=== PATIENT | male | born 1935 | race Caucasian/White ===

== ENCOUNTER → 2018-06-10 | Outpatient (CLI) | payer MEDICARE, OTHER ==
[2018-06-10 12:51] LABS: Basophils # (auto) 0.1 uL; Basophils % (auto) 0.5 % (0.0-2.0); Eosinophils # (auto) 0.2 uL; Eosinophils % (auto) 1.5 % (0.0-7.0); Hematocrit 29.3 % (41.0-53.0); Hemoglobin 9.8 g/dL (13.5-17.5); Lymphocytes # (auto) 1.9 uL; Lymphocytes % (auto) 13.5 % (10.0-50.0); Mean Corpuscular Hgb Conc. 33.3 g/dL (32.0-36.0); Mean Corpuscular Volume 99.1 fL (80.0-100.0); Monocytes # (auto) 1.4 uL; Monocytes % (auto) 10.2 % (0.0-12.0); Neutrophils # (auto) 10.3 uL; Neutrophils % (auto) 74.3 % (37.0-80.0); Nucleated Red Blood Cells % 0.2 %; Platelet Count (auto) 224 10^3/uL (140-450); Red Blood Cells 2.95 10^6/uL (4.5-5.90); Red Cell Distribution Width 16.9 % (11.8-14.3); White Blood Cell 13.8 10^3/uL (4.4-10.8)
[2018-06-10 15:22] LABS: Albumin 3.2 g/dL (3.4-5.0); BUN/Creatinine Ratio 40.4; Bilirubin, Total 1.2 mg/dL (0.2-1.0); CRP High Sensitivity 11.5 mg/dL (< 0.3); Calcium 8.7 mg/dL (8.5-10.1); Potassium 4.1 mmol/L (3.5-5.1); Total Protein 6.4 g/dL (6.4-8.2)
== END | disposition home or self-care (01) ==
LOC: LAB 12:22
PROVIDERS: ATTEND Internal Medicine
DX: I10 Essential (primary) hypertension (principal); L40.52 Psoriatic arthritis mutilans
CPT/HCPCS: 36415; 80053; 85025; 86141

== ENCOUNTER → 2018-10-06 | Outpatient (CLI) | payer MEDICARE, OTHER ==
[2018-10-06 14:57] LABS: Basophils # (auto) 0 uL; Basophils % (auto) 0.5 % (0.0-2.0); Eosinophils # (auto) 0.2 uL; Eosinophils % (auto) 1.9 % (0.0-7.0); Hematocrit 30.2 % (41.0-53.0); Hemoglobin 10.1 g/dL (13.5-17.5); Lymphocytes # (auto) 1.7 uL; Lymphocytes % (auto) 19.2 % (10.0-50.0); Mean Corpuscular Hemoglobin 32.3 pg (28.0-32.0); Mean Corpuscular Hgb Conc. 33.4 g/dL (32.0-36.0); Mean Corpuscular Volume 96.7 fL (80.0-100.0); Monocytes # (auto) 0.9 uL; Monocytes % (auto) 10.3 % (0.0-12.0); Neutrophils # (auto) 6.1 uL; Neutrophils % (auto) 68.1 % (37.0-80.0); Nucleated Red Blood Cells % 0.1 %; Platelet Count (auto) 162 10^3/uL (140-450); Red Blood Cells 3.12 10^6/uL (4.5-5.90); Red Cell Distribution Width 15.8 % (11.8-14.3)
[2018-10-06 15:57] LABS: Albumin 3.5 g/dL (3.4-5.0); Calcium 9.1 mg/dL (8.5-10.1)
[2018-10-06 16:00] LABS: BUN/Creatinine Ratio 32.9; Bilirubin, Total 0.6 mg/dL (0.2-1.0); Total Protein 6.2 g/dL (6.4-8.2)
== END | disposition home or self-care (01) ==
LOC: LAB 14:41
PROVIDERS: ATTEND Internal Medicine Rheumatology
DX: C61 Malignant neoplasm of prostate (principal)
CPT/HCPCS: 36415; 80053; 84153; 85025

== ENCOUNTER → 2018-12-13 | Outpatient (CLI) | payer MEDICARE, OTHER | END | disposition home or self-care (01) | LOC: LAB 09:55 | PROVIDERS: ATTEND Radiology Radiation Oncology | DX: C61 Malignant neoplasm of prostate (principal) | CPT/HCPCS: 84153 ==